=== PATIENT | female | born 1945 | race Caucasian/White ===

== ENCOUNTER 2017-02-07 19:55 | Day surgery (SDC) | payer OTHER ==
[~2017-02-07] VITALS: Ht 152.4 cm; Wt 83.6 kg
[~2017-02-07 19:55] MED LIST: ASPIR-TRIN325 M1 PO; ASPIRIN81 M1 PO; BENICAR5 MG PO; CALCIUM + D 601 EACH PO; CELEXA40 MG PO; CITALOPRAM HBR20 M1 PO; ERGOCALCIF50000 UNIT PO; GLUCOPHAGE1000 MG PO; HYDROCODON-ACE1 EAC7 PO; LANTUS (UNITS)1 UNIT SC; LANTUS 10100 UNITS/ SC; METFORMIN HCL1000 MG PO; METOPROLOL SUCC25 MG PO; METOPROLOL TART25 MG PO; NORCO 5/3251 TABLET PO; NOVOLOG (UNITS1 UNIT SC; NOVOLOG 10100 UNITS/ SC; PRAVACHOL20 MG PO; PRAVASTATIN SOD20 MG PO; SYNTHROID100 MCG PO; VITAMIN D50000 UNI1 PO; ZESTRIL,PRINIVI10 MG PO
[2017-02-07 23:32] LABS: HEMATOCRIT 46.8 % (36.0-46.0); MCH 30.4 PG (29.0-34.0); MCHC 33.8 G/DL (30.0-36.0); MEAN PLAT.VOLUME 10.2 uM^3 (9.5-12.4); PLATELET COUNT 264 K/uL (156-360); RBC DIS.WIDTH-CV 13.5 % (11.8-14.6); RBC DIS.WIDTH-SD 44.2 % (39-53); WHITE BLOOD COUNT 12.6 K/uL (4.1-10.2)
[2017-02-07 23:38] LABS: POINT-OF-CARE METER ID UU13113747
[2017-02-08 00:01] LABS: CHLORIDE 107 mEq/L (99-109); POTASSIUM 3.6 mEq/L (3.7-5.4); SODIUM 140 mEq/L (136-147)
[2017-02-08 00:03] LABS: GLUCOSE 145 mg/dL (70-99)
[2017-02-08 00:04] LABS: ANION GAP 13 MEQ/L (2-14)
[2017-02-08 00:07] LABS: GFR ESTIMATE (CALCULATED) > 59 mL/min/
[2017-02-08 00:08] LABS: UREA NITROGEN (BUN) 14 mg/dL (9-23)
[2017-02-08 00:44] VITALS: BP 144/88
[2017-02-08] MEDS ORDERED: TRULICITY0.75 MG/0. SC (01:17)
[2017-02-08] MEDS ORDERED: NEXIUM40 MG PO (01:51)
== END 2017-02-08 02:50 | disposition home or self-care (01) ==
LOC: EME 19:55 → SDC 02-08 00:45 → EME 02-08 00:45 → SDC 02-08 02:50
PROVIDERS: Emergency Medicine
PROC: 0DC58ZZ Extirpation of Matter from Esophagus, Via Natural or Artificial Opening Endoscopic (ICD-10-PCS; principal; 2017-02-08)
DX: T18.128A Food in esophagus causing other injury, initial encounter (principal); K29.80 Duodenitis without bleeding; K26.9 Duodenal ulcer, unspecified as acute or chronic, without hemorrhage or perforation; I10 Essential (primary) hypertension; E78.5 Hyperlipidemia, unspecified; Z85.528 Personal history of other malignant neoplasm of kidney; Z80.0 Family history of malignant neoplasm of digestive organs; Z79.4 Long term (current) use of insulin; Z88.0 Allergy status to penicillin
CPT/HCPCS: 80048; 80048 91; 82948; 85027; 99281; 99285; J0330; J2250; J2405; J3010

== ENCOUNTER 2017-10-11 12:51 | Emergency (ER) | payer OTHER ==
[~2017-10-11] VITALS: Ht 152.4 cm; Wt 82.1 kg
[~2017-10-11 12:51] MED LIST changes: +NEXIUM40 MG PO; +TRULICITY0.75 MG/0. SC
[2017-10-11 15:00] VITALS: BP 132/59
== END 2017-10-11 15:01 | disposition home or self-care (01) ==
LOC: EME 12:51
DX: S89.92XA Unspecified injury of left lower leg, initial encounter (principal); S50.01XA Contusion of right elbow, initial encounter; W19.XXXA Unspecified fall, initial encounter; Y92.89 Other specified places as the place of occurrence of the external cause; Z88.0 Allergy status to penicillin; Z88.1 Allergy status to other antibiotic agents; Z88.5 Allergy status to narcotic agent
CPT/HCPCS: 73564; 99281; 99284

== ENCOUNTER 2017-12-26 21:59 | Emergency (ER) | payer OTHER ==
[~2017-12-26] VITALS: Ht 149.9 cm; Wt 80.0 kg
[2017-12-26 22:37] LABS: MCHC 32.9 G/DL (30.0-36.0); MCV 88.2 FL (83-99); PLATELET COUNT 180 K/uL (156-360); RBC DIS.WIDTH-CV 13.5 % (11.8-14.6); RBC DIS.WIDTH-SD 43.9 % (39-53); WHITE BLOOD COUNT 9.9 K/uL (4.1-10.2)
[2017-12-26 22:42] LABS: HEMOGLOBIN 12.5 G/DL (11.9-15.5); RED BLOOD COUNT 4.31 M/uL (3.80-5.20)
[2017-12-26 22:43] LABS: ALBUMIN 3.1 g/dL (3.2-4.8); CHLORIDE 102 mEq/L (99-109); POTASSIUM 3.9 mEq/L (3.7-5.4); SODIUM 135 mEq/L (136-147)
[2017-12-26 22:45] LABS: GLUCOSE 389 mg/dL (70-99)
[2017-12-26 22:47] LABS: TOTAL BILIRUBIN 0.5 mg/dL (0.0-1.0)
[2017-12-26 22:49] LABS: ALKALINE PHOSPHATASE 141 IU/L (3-129); CREATININE 0.8 mg/dL (0.6-1.3); GFR ESTIMATE (CALCULATED) > 59 mL/min/
[2017-12-26 22:50] LABS: UREA NITROGEN (BUN) 10 mg/dL (9-23)
[2017-12-26 22:51] LABS: AST (GOT) 17 IU/L (2-34)
[2017-12-26 22:52] LABS: ALT (GPT) 22 IU/L (3-49)
[2017-12-26 23:35] LABS: APPEARANCE CLEAR ((CLEAR)); BILIRUBIN NEGATIVE; BLOOD LARGE; COLOR STRAW ((YELLOW)); GLUCOSE (STRIP) >=500; KETONES NEGATIVE; LEUKOCYTES MODERATE; NITRITE NEGATIVE; PROTEIN (STRIP) 30; SPECIFIC GRAVITY 1.007 (1.000-1.030); UROBILINOGEN 0.2 MG/DL (0.2-1.0)
[2017-12-26 23:43] LABS: BACTERIA RARE /HPF; EPITHELIAL CELLS RARE /HPF; MUCUS NONE SEEN /LPF; RED BLOOD CELLS 20-30 /HPF (0-5); UCUL ADDED? YES; WHITE BLOOD CELLS 30-40 /HPF (0-5)
[2017-12-27 02:01] VITALS: BP 112/56
== END 2017-12-27 02:01 | disposition home or self-care (01) ==
LOC: EME → EDBD 21:59 → EME 12-27 02:01
PROVIDERS: Emergency Medicine
DX: E11.65 Type 2 diabetes mellitus with hyperglycemia (principal); T38.3X1A Poisoning by insulin and oral hypoglycemic [antidiabetic] drugs, accidental (unintentional), initial encounter; Z79.4 Long term (current) use of insulin; Z85.528 Personal history of other malignant neoplasm of kidney; Z88.0 Allergy status to penicillin; Z88.1 Allergy status to other antibiotic agents; Z88.8 Allergy status to other drugs, medicaments and biological substances
CPT/HCPCS: 80053; 81003; 82948; 85027; 87086; 99281; 99284